=== PATIENT | male | born 1955 | race American Indian/Alaskan Native ===

== ENCOUNTER 2018-08-23 00:47 | Emergency (ER) | payer MEDICAID ==
[2018-08-23 01:03] VITALS: BP 133/73
[2018-08-23] MEDS ORDERED: ASPIRIN PO ONE (01:52)
--- NOTE | 2018-08-23 02:31 | XRay Report ---
PROCEDURE: XR CHEST 1V AP TECHNIQUE: A single view of the chest was obtained. HISTORY: Chest Pain COMPARISONS: None FINDINGS: The heart size and mediastinum appear normal. The lungs are clear. Pleural fluid is not seen. The bon es and soft tissues do not show any acute changes. IMPRESSION: No acute cardiopulmonary process.. This document is electronically signed by Lele Pittman MD., August 23 2018 02:28:12 AM ET
[2018-08-23 02:50] LABS: Hematocrit 40.5 % (35.5-45.6); Hemoglobin 13.7 gm/dl (11.8-15.2); Mean Corpuscular HGB Conc 34 % (32-34); Mean Corpuscular Volume 92 fl (84-94); Platelet Count 308 K/mm3 (140-440); Red Blood Count 4.39 M/mm3 (3.65-5.03); Red Cell Distribution Width 12.1 % (13.2-15.2)
[2018-08-23 03:09] LABS: BUN/Creatinine Ratio 9; Blood Urea Nitrogen 6 mg/dL (9-20); Calcium 9.2 mg/dL (8.4-10.2); Hemolysis Index 10
[2018-08-23 03:32] LABS: Basophils % (Manual) 0 % (0.0-1.8); Total Cells Counted 100
[2018-08-23 03:33] LABS: Large Platelets 1+; Platelet Estimate Consistent w Auto; RBC Morphology Normal
== END 2018-08-23 08:59 ==
LOC: ED 00:47
DX: R07.89 Other chest pain (principal); R06.00 Dyspnea, unspecified; Z53.21 Procedure and treatment not carried out due to patient leaving prior to being seen by health care provider
CPT/HCPCS: 36415; 71045; 80048; 84484; 85007; 85025; 93005; 93010